=== PATIENT | male | born 1960 | race Caucasian/White ===

== ENCOUNTER → 2016-12-30 | Outpatient (CLI) | payer MEDICARE, OTHER ==
[~2016-12-30] MED LIST: ASPIR 8181 MG PO; ASPIRIN325 MG PO; DIABETA 5 MG TAB5 MG PO; FLUOXETINE HCL20 MG PO; GLUCOPHAGE500 MG PO; GLUCOTROL5 MG PO; IMDUR ER TAB 6060 MG PO; LEVAQUIN500 MG PO; LIPITOR TAB 2020 MG PO; LISINOPRIL10 MG PO; METFORMIN HCL500 M2 PO; METFORMIN HCL500 MG PO; METOPROLOL SUCC25 MG PO; NITROSTAT 0.40.4 MG SL; PLAVIX 75 MG TA75 MG PO; TYLENOL W/CODEIN1 E1 PO; XARELTO20 MG PO; ZOCOR20 MG PO; ZYLOPRIM 100 M100 MG PO
== END ==
LOC: HEART 5 08:48
DX: R00.2 Palpitations (principal); R55 Syncope and collapse; R00.1 Bradycardia, unspecified; R00.0 Tachycardia, unspecified; I48.91 Unspecified atrial fibrillation

== ENCOUNTER → 2017-02-17 | Outpatient (CLI) | payer MEDICARE, OTHER ==
[2017-02-17 12:19] LABS: HEMOGLOBIN 13.9 gm/dl (14.0-17.5); RED BLOOD COUNT 4.74 M/UL (4.20-5.50); WHITE BLOOD COUNT 9.9 K/UL (4.5-11.0)
[2017-02-17 12:52] LABS: BUN/CREATININE RATIO 13 (0-10)
== END ==
LOC: LAB 11:44
PROVIDERS: Internal Medicine Cardiovascular Disease
DX: I10 Essential (primary) hypertension (principal); I63.9 Cerebral infarction, unspecified
CPT/HCPCS: 36415; 71020; 80048; 85025

== ENCOUNTER → 2017-02-18 | Outpatient (CLI) | payer MEDICARE, OTHER ==
[~2017-02-18] VITALS: Ht 185.4 cm; Wt 108.9 kg
== END | disposition home or self-care (01) ==
LOC: CATH 07:09
DX: I63.9 Cerebral infarction, unspecified (principal); I10 Essential (primary) hypertension; Z79.82 Long term (current) use of aspirin; Z79.84 Long term (current) use of oral hypoglycemic drugs; Z79.02 Long term (current) use of antithrombotics/antiplatelets; Z79.899 Other long term (current) drug therapy
CPT/HCPCS: 33282; 82962; C1764; J2250; J3010; J3370; J7040; J7050